=== PATIENT | male | born 1950 | race Caucasian/White ===

== ENCOUNTER → 2023-08-25 10:05 | Outpatient (REF) | payer MEDICARE, OTHER, SELFPAY ==
[2023-08-25 10:55] LABS: % Basophils 0.6 % (0-2); % Eosinophils 2.2 % (0-6); % Immature Granulocytes 0.2 % (0-0.5); Absolute Eosinophils 0.1 10^3/uL (0-0.7); Absolute Lymphocytes 1.3 10^3/uL (1.2-3.4); Absolute Monocytes 0.3 10^3/uL (0.1-0.6); Absolute Neutrophils 3.1 10^3/uL (1.4-6.5); Hemoglobin 13.7 g/dL (13.0-18.0); Mean Corp Hgb Conc. 34.3 g/dL (33.0-37.0); Mean Corpuscular Volume 84.7 fL (80.0-94.0); Mean Platelet Volume 11.2 fL (7.4-10.4); Nucleated Red Blood Cells % 0 % (-); Platelet Count 147 10^3/uL (130-400); Red Blood Cell Count 4.72 10^6/uL (4.70-6.10); Red Cell Dist. Width 13.4 % (11.5-14.5); White Blood Cell Count 4.9 10^3/uL (4.8-10.8)
[2023-08-25 11:21] LABS: ALT (SGPT) 36 U/L (0-50); AST (SGOT) 37 U/L (17-59); Albumin 4.2 g/dl (3.5-5.0); Alkaline Phosphatase 91 U/L (38-126); Blood Urea Nitrogen 20 mg/dl (9-20); Calcium 9.7 mg/dl (8.4-10.2); Carbon Dioxide 26 mmol/L (22-30); Chloride 106 mmol/L (98-107); Glucose 95 mg/dl (70-99); HDL Cholesterol 36 mg/dl; LDL Cholesterol, Calculated 63 mg/dl; Potassium 4.1 mmol/L (3.5-5.1); Sodium 141 mmol/L (135-145); Total Bilirubin 0.8 mg/dl (0.2-1.3); Total Cholesterol 127 mg/dl (50-199); Total Protein 7.1 g/dl (6.3-8.2); Triglyceride 143 mg/dl (10-149); Very Low Density Lipoprotein 28 mg/dl (0-30); eGFR 57.65
[2023-08-25 11:51] LABS: PSA, Total - Diagnostic 7.81 ng/ml (0.0-4.0)
[2023-08-25 12:33] LABS: TSH Reflex To Free T4 3.26 uIU/ml (0.47-4.68)
== END ==
LOC: REG 10:05
PROVIDERS: ATTENDING PHYSICIAN Radiology Radiation Oncology; FAMILY PHYSICIAN Family Medicine; OTHER PHYSICIAN Internal Medicine Cardiovascular Disease; OTHER PHYSICIAN Nurse Practitioner; OTHER PHYSICIAN Surgery; REFERRING PHYSICIAN Nurse Practitioner Family
DX: I12.9 Hypertensive chronic kidney disease with stage 1 through stage 4 chronic kidney disease, or unspecified chronic kidney disease (principal); C61 Malignant neoplasm of prostate; E78.2 Mixed hyperlipidemia; F13.20 Sedative, hypnotic or anxiolytic dependence, uncomplicated; K21.9 Gastro-esophageal reflux disease without esophagitis; F51.01 Primary insomnia; R49.0 Dysphonia
CPT/HCPCS: 36415; 80053; 80061; 84153; 84443; 85025

== ENCOUNTER → 2024-01-19 11:16 | Outpatient (REF) | payer MEDICARE, OTHER, SELFPAY ==
[2024-01-22 01:16] LABS: PSA Total 8.8 ng/mL (0.0-4.0)
== END ==
LOC: REG 11:16
PROVIDERS: ATTENDING PHYSICIAN Surgery; FAMILY PHYSICIAN Family Medicine
DX: C61 Malignant neoplasm of prostate (principal)
CPT/HCPCS: 36415; 84153; 84154

== ENCOUNTER → 2024-03-08 11:55 | Outpatient (REF) | payer MEDICARE, OTHER, SELFPAY | LOC: MRI 3T 11:55 | PROVIDERS: ATTENDING PHYSICIAN Surgery; FAMILY PHYSICIAN Family Medicine | DX: C61 Malignant neoplasm of prostate (principal) | CPT/HCPCS: 72197; A9575 ==

== ENCOUNTER → 2024-06-21 10:45 | Outpatient (REF) | payer MEDICARE, OTHER, SELFPAY ==
[2024-06-21 12:09] LABS: ALT (SGPT) 48 U/L (0-50); AST (SGOT) 37 U/L (17-59); Albumin 4.7 g/dl (3.5-5.0); Alkaline Phosphatase 101 U/L (38-126); Blood Urea Nitrogen 22 mg/dl (9-20); Calcium 9.6 mg/dl (8.4-10.2); Carbon Dioxide 27 mmol/L (22-30); Chloride 106 mmol/L (98-107); Glucose 102 mg/dl (70-99); HDL Cholesterol 38 mg/dl; LDL Cholesterol, Calculated 77 mg/dl; Potassium 4.6 mmol/L (3.5-5.1); Sodium 143 mmol/L (135-145); Total Cholesterol 142 mg/dl (50-199); Total Protein 7.3 g/dl (6.3-8.2); Triglyceride 138 mg/dl (10-149); Very Low Density Lipoprotein 27 mg/dl (0-30); eGFR 57.29
[2024-06-21 12:19] LABS: Uric Acid 3.8 mg/dl (3.5-8.5)
== END ==
LOC: REG 10:45
PROVIDERS: ATTENDING PHYSICIAN Nurse Practitioner Family; OTHER PHYSICIAN Internal Medicine Cardiovascular Disease; OTHER PHYSICIAN Surgery
DX: Z13.6 Encounter for screening for cardiovascular disorders (principal); C61 Malignant neoplasm of prostate
CPT/HCPCS: 36415; 80053; 80061; 84153; 84154; 84550

== ENCOUNTER → 2024-12-23 10:55 | Outpatient (REF) | payer MEDICARE, OTHER, SELFPAY ==
[2024-12-23 12:32] LABS: Hematocrit 42.3 % (39.0-52.0); Hemoglobin 14.1 g/dL (13.0-18.0); Mean Corp Hgb Conc. 33.3 g/dL (33.0-37.0); Mean Corpuscular Volume 87.0 fL (80.0-94.0); Nucleated Red Blood Cells % 0 % (-); Platelet Count 146 10^3/uL (130-400); Red Cell Dist. Width 13.2 % (11.5-14.5)
[2024-12-23 13:27] LABS: ALT (SGPT) 59 U/L (0-50); AST (SGOT) 47 U/L (17-59); Albumin 4.8 g/dl (3.5-5.0); Alkaline Phosphatase 84 U/L (38-126); Blood Urea Nitrogen 21 mg/dl (9-20); Calcium 9.4 mg/dl (8.4-10.2); Carbon Dioxide 28 mmol/L (22-30); Chloride 105 mmol/L (98-107); Glucose 102 mg/dl (70-99); Potassium 4.3 mmol/L (3.5-5.1); Sodium 142 mmol/L (135-145); Total Protein 7.8 g/dl (6.3-8.2); eGFR > 60.00
[2024-12-23 13:51] LABS: PSA, Total - Diagnostic 9.66 ng/ml (0.0-4.0)
== END ==
LOC: REG 10:55
PROVIDERS: ATTENDING PHYSICIAN Radiology Radiation Oncology; FAMILY PHYSICIAN Nurse Practitioner Family; OTHER PHYSICIAN Surgery; REFERRING PHYSICIAN Internal Medicine Cardiovascular Disease
DX: E78.2 Mixed hyperlipidemia (principal); I12.9 Hypertensive chronic kidney disease with stage 1 through stage 4 chronic kidney disease, or unspecified chronic kidney disease; N18.32 Chronic kidney disease, stage 3b; K21.9 Gastro-esophageal reflux disease without esophagitis; C61 Malignant neoplasm of prostate; F51.01 Primary insomnia; R68.89 Other general symptoms and signs
CPT/HCPCS: 36415; 80053; 84153; 84443; 85025

== ENCOUNTER → 2025-01-10 11:00 | Outpatient (REF) | payer MEDICARE, OTHER, SELFPAY | LOC: RAD 11:00 | PROVIDERS: ATTENDING PHYSICIAN Nurse Practitioner Family; FAMILY PHYSICIAN Family Medicine | DX: R10.84 Generalized abdominal pain (principal); R74.01 Elevation of levels of liver transaminase levels; R63.0 Anorexia; K57.90 Diverticulosis of intestine, part unspecified, without perforation or abscess without bleeding | CPT/HCPCS: 74178; Q9967 ==

== ENCOUNTER → 2025-01-24 10:39 | Outpatient (REF) | payer MEDICARE, OTHER, SELFPAY ==
[2025-01-24 11:37] LABS: Hematocrit 40.5 % (39.0-52.0); Hemoglobin 14.2 g/dL (13.0-18.0); Mean Corp Hgb Conc. 35.1 g/dL (33.0-37.0); Mean Corpuscular Volume 85.4 fL (80.0-94.0); Nucleated Red Blood Cells % 0 % (-); Platelet Count 159 10^3/uL (130-400); Red Cell Dist. Width 13.2 % (11.5-14.5)
[2025-01-24 12:20] LABS: Urine Character Clear (Clear)
[2025-01-24 13:16] LABS: Ferritin 21.3 ng/ml (17.9-464.0)
[2025-01-24 14:18] LABS: Microalb - Urine Creatinine 132.400 mg/dl
[2025-01-24 14:25] LABS: Microalbumin, Random Urine < 0.6 mg/dl (0.6-1.7)
[2025-01-24 22:01] LABS: ALT (SGPT) 58 U/L (0-50); AST (SGOT) 46 U/L (17-59); Albumin 4.6 g/dl (3.5-5.0); Alkaline Phosphatase 85 U/L (38-126); Blood Urea Nitrogen 19 mg/dl (9-20); Calcium 9.6 mg/dl (8.4-10.2); Carbon Dioxide 26 mmol/L (22-30); Chloride 102 mmol/L (98-107); Glucose 94 mg/dl (70-99); Iron 103 ug/dl (49-181); Potassium 4.5 mmol/L (3.5-5.1); Sodium 134 mmol/L (135-145); Total Protein 7.8 g/dl (6.3-8.2); Uric Acid 4.1 mg/dl (3.5-8.5); eGFR 57.29
[2025-01-24 22:10] LABS: Total Iron Binding Capacity 379 ug/dl (261-462)
== END ==
LOC: REG 10:39
PROVIDERS: ATTENDING PHYSICIAN Internal Medicine Nephrology; FAMILY PHYSICIAN Family Medicine
DX: N28.9 Disorder of kidney and ureter, unspecified (principal); D64.9 Anemia, unspecified; N25.81 Secondary hyperparathyroidism of renal origin; R80.9 Proteinuria, unspecified
CPT/HCPCS: 36415; 80053; 81003; 82043; 82570; 82728; 83540; 83550; 83970; 84100; 84550; 85025